=== PATIENT | male | born 1970 | race Caucasian/White ===

== ENCOUNTER 2024-07-28 19:08 | Inpatient (IN) ==
[2024-07-28] MEDS: PIPERACILLIN/TAZOBACTAM 4.5 GM/100 ML BAG IV ONE (20:27)
[2024-07-28 20:30] LABS: Basophils # (auto) 0.02 K/uL (0.00-0.20); Basophils % (auto) 0.3 %; Eosinophils # (auto) 0.08 K/uL (0.00-0.50); Eosinophils % (auto) 1.1 %; Hematocrit (blood only) 44.5 % (42.0-52.0); Immature Granulocytes # (auto) 0.02 K/uL (0.01-0.20); Immature Granulocytes % (auto) 0.3 %; Lymphocytes # (auto) 2.22 K/uL (1.20-3.40); Lymphocytes % (auto) 31.4 %; Mean Corpuscular Hemoglobin 31.4 pg (25.0-34.0); Mean Corpuscular Hgb Conc 33.7 g/dL (32.0-36.0); Mean Corpuscular Volume 93.3 fL (80.0-100.0); Mean Platelet Volume 8.5 fL (9.4-12.4); Monocytes % (auto) 8.5 %; Neutrophils # (auto) 4.12 K/uL (1.40-6.50); Neutrophils % (auto) 58.4 %; Platelet Count 246 K/uL (130-400); RDW Coefficient of Variation 11.8 % (11.5-14.5); RDW Standard Deviation 40.5 fL (36.4-46.3); Red Blood Count 4.77 M/uL (4.70-6.10); White Blood Count 7.06 K/ul (4.8-10.8)
[2024-07-28 20:31] LABS: Appearance Urine Clear (Clear); Bilirubin Urine Negative (Negative); Blood Urine Negative (Negative); Color Urine Yellow; Glucose Urine UA Negative (Negative); Ketones Urine Negative (Negative); Leukocyte Esterase Urine Negative (Negative); Nitrite Urine Negative (Negative); Protein Urine Negative (Negative); Specific Gravity Urine 1.013 (1.000-1.030); Urobilinogen Urine Negative (Negative); pH Urine 6.5 (4.5-7.5)
[2024-07-28 20:38] LABS: Albumin Globulin Ratio 1.5 (0.9-2); Albumin Level 4.8 gm/dl (3.4-5.0); BUN Creatinine Ratio 10.8 (10-20); Bilirubin,Total 0.5 mg/dl (0.2-1.0); Calcium 9.9 mg/dl (8.6-10.3); Creatinine Clr Calc Pharmacy 90.4 ml/min; Globulin 3.3 gm/dl (2.5-4.0); Potassium 4.1 mmol/L (3.5-5.1); Total Protein 8.1 gm/dl (6.0-8.3)
--- NOTE | 2024-07-28 21:03 | Emergency Department Note ---
Impression & Plan Diverticulitis, Colonic diverticular abscess ED Provider Note NAME: MADISON MARTINEZ AGE: 54 SEX: M : 1970 ARRIVES VIA: Walk-In INFORMANT: Patient, ED PROVIDER(S): Kenan Sifuentes MD CHIEF COMPLAINT: Diverticulitis with microperforation HPI: This is a 54-year-old male presenting for diverticulitis with microperforation. Patient was seen for 3 days with abdominal pain by his PCP today. He had a CAT scan done today which did come with the results of diverticulitis, with microperforation and possible developing early abscess. He was advised to come to the ER. Patient has had minimal pain when he is not moving. If he does move he is painful sensation in his left lower quadrant. Otherwise no nausea vomiting or diarrhea. ROS: See above HPI for pertinent positives & negatives. A total of 10 systems reviewed and were otherwise negative. PAST MEDICAL HISTORY: See Below PAST SURGICAL HISTORY: See Below FAMILY HISTORY: See Below SOCIAL HISTORY: See Below HOME MEDICATIONS: See Below ALLERGIES: See Below VITALS: See Below PHYSICAL EXAMINATION: General: resting comfortably in no acute distress Head: Normocephalic and atraumatic Eyes: Normal inspection, extraocular muscles intact Ear, nose, throat: Normal external exam Neck: Normal range of motion Respiratory: lungs clear to auscultation bilaterally Cardiovascular: Regular rate/rhythm, no murmur GI: soft, nontender, no guarding or rebound Extremities: nontender, moves all extremities Neuro: The patient awake and alert, appropriately conversive, no focal deficits, symmetric faces Skin: Warm, dry, and intact MEDICAL DECISION MAKING: This is a 54-year-old male present for diverticulitis with microperforation. CT imaging was done earlier today. -Bloodwork is reviewed showing no significant leukocytosis, anemia, electrolyte or creatinine abnormality -Care discussed with NANDINI Gomez for general surgery. -Given Zosyn at this time coverage -Will admit at this time for this diverticulitis/microperforation/abscess Differential diagnosis: Diverticulitis, abscess, bowel perforation, Diagnostics interpreted by me: ECG: None Cardiac Monitoring: An order was placed for continuous cardiac monitoring. The monitor shows a rate of 63 with sinus rhythm. 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3 C L Temperature Source Temporal Artery Scan Pulse Rate 90 70 Pulse Rate [Apical] 72 Respiratory Rate 16 16 Respiratory Effort / Characteristics Non-Labored Spontaneous Respiratory Depth Normal Respiratory Pattern Regular Blood Pressure 159/89 H Blood Pressure [Right Arm] 123/86 Blood Pressure Mean 112 Blood Pressure Mean [Right Arm] 98 Pulse Oximetry 100 97 Oxygen Delivery Method Room Air Room Air Sepsis Recent Fever Within 48 Hours No Sepsis New/Unexplained Change in Mental Status No Sepsis Action Taken by Nursing No Action Required 07/28/24 21:50 Temperature Temperature Source Pulse Rate Pulse Rate [Apical] 73 Respiratory Rate 16 Respiratory Effort / Characteristics Respiratory Depth Respiratory Pattern Blood Pressure Blood Pressure [Right Arm] 162/90 H Blood Pressure Mean Blood Pressure Mean [Right Arm] 114 Pulse Oximetry 96 Oxygen Delivery Method Room Air Sepsis Recent Fever Within 48 Hours Sepsis New/Unexplained Change in Mental Status Sepsis Action Taken by Nursing Laboratory Data 07/28/24 19:50 07/28/24 19:50 Lab Results 07/28/24 07/28/24 Range/Units 19:50 19:51 WBC 7.06 (4.8-10.8) K/ul RBC 4.77 (4.70-6.10) M/uL Hgb 15.0 (14.0-18.0) g/dl Hct 44.5 (42.0-52.0) % MCV 93.3 (80.0-100.0) fL MCH 31.4 (25.0-34.0) pg MCHC 33.7 (32.0-36.0) g/dL RDW Std Deviation 40.5 (36.4-46.3) fL RDW Coeff of Coretta 11.8 (11.5-14.5) % Plt Count 246 (130-400) K/uL MPV 8.5 L (9.4-12.4) fL Immature Gran % (Auto) 0.3 % Neut % (Auto) 58.4 % Lymph % (Auto) 31.4 % [place] % (Auto) 8.5 % Eos % (Auto) 1.1 % Baso % (Auto) 0.3 % Neut # (Auto) 4.12 (1.40-6.50) K/uL Lymph # (Auto) 2.22 (1.20-3.40) K/uL [place] # (Auto) 0.60 H (0.11-0.59) K/uL Eos # (Auto) 0.08 (0.00-0.50) K/uL Baso # (Auto) 0.02 (0.00-0.20) K/uL Immature Gran # (Auto) 0.02 (0.01-0.20) K/uL Sodium 138 (136-145) mmol/L Potassium 4.1 (3.5-5.1) mmol/L Chloride 104 (98-107) mmol/L Carbon Dioxide 27 (21-32) mmol/L Anion Gap 7 (3-11) BUN 11 (6-23) mg/dl Creatinine 1.02 (0.6-1.4) mg/dl Est Cr Clr Drug Dosing 90.4 ml/min eGFR 87.88 BUN/Creatinine Ratio 10.8 (10-20) Glucose 106 H (70-99(Fasting)) mg/dl Calcium 9.9 (8.6-10.3) mg/dl Total Bilirubin 0.5 (0.2-1.0) mg/dl AST 23 (13-39) U/L ALT 18 (7-52) U/L Alkaline Phosphatase 40 (34-104) U/L Total Protein 8.1 (6.0-8.3) gm/dl Albumin 4.8 (3.4-5.0) gm/dl Globulin 3.3 (2.5-4.0) gm/dl Albumin/Globulin Ratio 1.5 (0.9-2) Lipase 20 (11-82) U/L Urine Color Yellow Urine Appearance Clear (Clear) Urine pH 6.5 (4.5-7.5) Ur Specific [place] 1.013 (1.000-1.030) Urine Protein Negative (Negative) Urine Glucose (UA) Negative (Negative) Urine Ketones Negative (Negative) Urine Blood Negative (Negative) Urine Nitrite Negative (Negative) Urine Bilirubin Negative (Negative) Urine Urobilinogen Negative (Negative) Ur Leukocyte Esterase Negative (Negative) Administered Medications Sodium Chloride (Nss) 1,000 mls @ 100 mls/hr IV .Q10H ARCHIE Stop: 07/29/24 21:29 Last Admin: 07/28/24 21:48 Dose: 100 mls/hr Documented By: DUKE Discontinued Medications Piperacillin Sod/Tazobactam Sod (Zosyn) 4.5 gm in 100 mls @ 200 mls/hr IV NOW ONE; Protocol Stop: 07/28/24 20:22 Last Infusion: 07/28/24 20:58 Dose: Infused Documented By: Admin: 07/28/24 20:27 Dose: 200 mls/hr Documented By: DUKE Famotidine (Pepcid 20mg Iv Push) 20 mg in 5 mls @ 2.5 mls/min IV NOW STA Stop: 07/29/24 00:33 Last Admin: 07/29/24 00:58 Dose: 2.5 mls/min Documented By: AN Discharge Plan Visit Data Chief Complaint: Abdominal Pain Stated Complaint: DIVERTICULITIS, SAYS HE IS BEING ADMITTED ED Provider: Kenan Sifuentes Discharge Problem: Diverticulitis, Colonic diverticular abscess Discharge Instructions Interventions: ED Discharge Assessment Last Done: 07/28/24 23:22
--- NOTE | 2024-07-28 21:21 | Surgery Consultation ---
<Statement entered by Alejandro Gallagher, - 07/29/24 21:52> This case has been discussed with the surgical PA Date of Consultation July 28, 2024 Assessment & Plan (1) Diverticulitis large intestine: I discussed with the treating physician in the emergency department and the patient is being admitted on the hospitalist service. From a surgical perspective we recommend the following: Provide analgesics as needed Provide antiemetics if needed Implement n.p.o. status (I feel it would be acceptable for patient to have an occasional ice chip for comfort only) Hydrate patient with IV fluids while n.p.o. Antibiotics in form of Zosyn has been initiated and he should continue Follow serial labs Follow serial abdominal exams I discussed with the patient his condition. I did discuss with him that we will treat him in a conservative manner with bowel rest, antibiotics, and IV fluids. I did discuss with the patient that it would be preferable to treat him in a conservative manner as opposed to surgical intervention, as any surgery at this point would likely require a temporary colostomy. At the time of my interview the patient was nontoxic-appearing. He was normotensive without tachycardia fever and did not exhibit leukocytosis or acute kidney injury. He also does not have an acute abdomen, and therefore I feel conservative measures as outlined above are warranted Additional recommendations with forthcoming based on his clinical course as it unfolds History of Present Illness Reason for Consultation: Diverticulitis History of Present Illness This is a 54-year-old male who presented to the emergency department at the recommendation of his primary care physician due to concerns for diverticulitis on an outpatient CT scan which will be described below. Patient notes that he was having 3 days of abdominal pain. He notes that the pain was in the left lower quadrant without radiation. He said that the pain was worse when he was sitting up and with certain movements. He notes that the pain appeared somewhat better while he was lying flat or sitting still. He denies any fevers, shakes, or chills. He denies any nausea or vomiting. He denies any change in his bowel habits and notes that his bowels have been moving normally. The patient notes he has never had abdominal surgery. He does report that he had a colonoscopy in February 2024 at which time he had polyps removed. Patient developed abdominal pain after this procedure but was never formally diagnosed with diverticulitis at that time. This patient had an outpatient CT scan which I independent reviewed. The CT scan was of the abdomen pelvis that showed patient had diverticulitis of the distal descending colon which appeared to contain a microperforation and had an adjacent fluid collection measuring approximately 3.0 x 3.1 cm concerning for developing abscess. Since arrival to the emergency department the patient has had labs which included a CBC that showed white blood cell count, hemoglobin, hematocrit, and platelet count were normal. Chemistry profile showed sodium and potassium as well as the BUN and creatinine were normal. There is no elevation of patient's LFTs or lipase. Urinalysis was not indicative of infection. At the time my interview the patient was resting comfortably in bed he was no distress. Concerning past medical history the patient says that he has GERD Concerning past surgical history he denies any prior surgeries He reports he is not allergic to any medicines Concerning social history does not smoke Concerning family history his father suffered from esophageal cancer Patient History Social History Smoking Status: Never smoker Preferred Language: Syriac Feels Safe at Home: Yes Review of Systems Review of Systems: All systems reviewed & are unremarkable except as noted in HPI & below Physical Exam Constitutional: WD/WN, vitals as above Eyes: no conjunctival abnormality ENMT: Ears: no hearing impairment and no external ear abnormality Mouth: no oropharynx abnormality Neck: trachea midline Respiratory: normal respiratory effort; no respiratory distress and no labored breathing Cardiovascular: Rate/Rhythm: regular rate and regular rhythm Gastrointestinal (Abdomen): Abdomen is soft and nondistended. There is pain with palpation only in the left lower quadrant. There is no rebound tenderness or guarding. Musculoskeletal: No gross orthopedic abnormalities Skin: no rashes Neurologic: moves all extremities Psychiatric: A+Ox3, euthymic affect Results & Data Vital Signs (Past 12 Hours) Vital Signs Temp Pulse Pulse Resp BP BP Pulse Ox 07/28/24 20:24 72 16 123/86 97 07/28/24 20:17 70 07/28/24 19:13 36.3 C L 90 16 159/89 H 100 O2 Del Method 07/28/24 20:24 Room Air 07/28/24 20:17 07/28/24 19:13 Room Air PG Care Time/CCT Total # of Minutes Spent Total Time Spent with Patient: Total time spent is greater than 50% in coordination of care (as documented) at patient's floor/unit and/or counseling patient: Coding Level of Care Code 68923 IN/OBS CONSULT LVL 5,80M Diagnoses Diverticulitis large intestine K57.32
[2024-07-28] MEDS: SODIUM CHLORIDE 0.9% 1,000 ML IV SCH (21:48)
--- NOTE | 2024-07-28 22:13 | History & Physical Report ---
Date of Service July 28, 2024 Assessment & Plan (1) Diverticulitis large intestine: Plan 54 year old male presenting with LLQ abdominal pain: #Diverticulitis: CT A/P notable for: Distal descending colon diverticulitis complicated with contained micro perforation and adjacent fluid collection/early organizing abscess Afebrile, no leukocytosis - repeat AM labs NPO Continue IV fluids while NPO Continue IV Zosyn General surgery consulted, appreciate recs: surgical intervention deferred at this time, recommend conservative management Zofran PRN for N/V Chronic Conditions: GERD: Continue Pepcid BID Dispo: Admit med/surg FEN/GI: NPO, NSS @ 100mL/hour VTE ppx: Heparin Full Code History of Present Illness Chief Complaint: LLQ abdominal pain Primary Care Provider: Stevenson Darnell MD 54 year old male with minimal PMHx apart from GERD, presenting after outpatient abdominal CT demonstrated diverticulitis with microperforation and ~3cm early/developing abscess. Patient saw PCP regarding this abdominal pain, started about 4 days ago, LLQ intermittent stabbing pain. Pain overall improving, now pa in free at rest, only experiences pain with movement. Denies fevers/chills. Denies associated N/V/D. Patient notes previous episode of similar but less severe sx, resolved spontaneously over 7-10 day period. Allergies Allergy/AdvReac Type Severity Reaction Status Date / Time No Known Allergies Allergy Verified 07/28/24 22:11 Home Medications Medication Instructions Recorded Confirmed Type colchicine 0.6 mg tablet 0.6 mg PO DAILY PRN .GOUT FLARE 07/28/24 07/28/24 History famotidine 20 mg tablet 20 mg PO BID 07/28/24 07/28/24 History Past Med/Surg History Problem List Colonic diverticular abscess (Acute) Diverticulitis (Acute) Diverticulitis large intestine Social History Smoking Status: Current some day smoker Tobacco Type: Cigars Do You Dip or Chew Tobacco: No; Hx Alcohol Use: Yes Hx Substance Use: No Preferred Language: Danish [employer] Required: No Beliefs That Will Affect Care: None Current Living Situation: Spouse Feels Safe at Home: Yes Safety Concerns: Feels Safe At This Time Review of Systems Review of Systems: as per HPI Physical Exam Physical Exam: General: Alert and oriented. No acute distress Cardiac: Regular rate and rhythm, no murmurs appreciated Respiratory: Lungs clear to auscultation bilaterally, No increased work of breathing Abdominal: Soft, non-distended. +TTP in LLQ, no rebound tenderness, guarding, or rigidity. Bowel sounds normal. Extremities: No lower extremity edema Results & Data Results & Data Vital Signs (Past 12 Hours) Vital Signs Temp Pulse Pulse Resp BP BP Pulse Ox 07/28/24 21:50 73 16 162/90 H 96 07/28/24 20:24 72 16 123/86 97 07/28/24 20:17 70 07/28/24 19:13 36.3 C L 90 16 159/89 H 100 O2 Del Method 07/28/24 21:50 Room Air 07/28/24 20:24 Room Air 07/28/24 20:17 07/28/24 19:13 Room Air Laboratory Results Laboratory Results WBC 7.06 K/ul (4.8-10.8) 07/28/24 19:50 RBC 4.77 M/uL (4.70-6.10) 07/28/24 19:50 Hgb 15.0 g/dl (14.0-18.0) 07/28/24 19:50 Hct 44.5 % (42.0-52.0) 07/28/24 19:50 MCV 93.3 fL (80.0-100.0) 07/28/24 19:50 MCH 31.4 pg (25.0-34.0) 07/28/24 19:50 MCHC 33.7 g/dL (32.0-36.0) 07/28/24 19:50 RDW Std Deviation 40.5 fL (36.4-46.3) 07/28/24 19:50 RDW Coeff of Coretta 11.8 % (11.5-14.5) 07/28/24 19:50 Plt Count 246 K/uL (130-400) 07/28/24 19:50 MPV 8.5 fL (9.4-12.4) L 07/28/24 19:50 Immature Gran % (Auto) 0.3 % 07/28/24 19:50 Neut % (Auto) 58.4 % 07/28/24 19:50 Lymph % (Auto) 31.4 % 07/28/24 19:50 [place] % (Auto) 8.5 % 07/28/24 19:50 Eos % (Auto) 1.1 % 07/28/24 19:50 Baso % (Auto) 0.3 % 07/28/24 19:50 Neut # (Auto) 4.12 K/uL (1.40-6.50) 07/28/24 19:50 Lymph # (Auto) 2.22 K/uL (1.20-3.40) 07/28/24 19:50 [place] # (Auto) 0.60 K/uL (0.11-0.59) H 07/28/24 19:50 Eos # (Auto) 0.08 K/uL (0.00-0.50) 07/28/24 19:50 Baso # (Auto) 0.02 K/uL (0.00-0.20) 07/28/24 19:50 Immature Gran # (Auto) 0.02 K/uL (0.01-0.20) 07/28/24 19:50 Sodium 138 mmol/L (136-145) 07/28/24 19:50 Potassium 4.1 mmol/L (3.5-5.1) 07/28/24 19:50 Chloride 104 mmol/L (98-107) 07/28/24 19:50 Carbon Dioxide 27 mmol/L (21-32) 07/28/24 19:50 Anion Gap 7 (3-11) 07/28/24 19:50 BUN 11 mg/dl (6-23) 07/28/24 19:50 Creatinine 1.02 mg/dl (0.6-1.4) 07/28/24 19:50 Est Cr Clr Drug Dosing 90.4 ml/min 07/28/24 19:50 eGFR 87.88 07/28/24 19:50 BUN/Creatinine Ratio 10.8 (10-20) 07/28/24 19:50 Glucose 106 mg/dl (70-99(Fasting)) H 07/28/24 19:50 Calcium 9.9 mg/dl (8.6-10.3) 07/28/24 19:50 Total Bilirubin 0.5 mg/dl (0.2-1.0) 07/28/24 19:50 AST 23 U/L (13-39) 07/28/24 19:50 ALT 18 U/L (7-52) 07/28/24 19:50 Alkaline Phosphatase 40 U/L (34-104) 07/28/24 19:50 Total Protein 8.1 gm/dl (6.0-8.3) 07/28/24 19:50 Albumin 4.8 gm/dl (3.4-5.0) 07/28/24 19:50 Globulin 3.3 gm/dl (2.5-4.0) 07/28/24 19:50 Albumin/Globulin Ratio 1.5 (0.9-2) 07/28/24 19:50 Lipase 20 U/L (11-82) 07/28/24 19:50 Urine Color Yellow 07/28/24 19:51 Urine Appearance Clear (Clear) 07/28/24 19:51 Urine pH 6.5 (4.5-7.5) 07/28/24 19:51 Ur Specific [place] 1.013 (1.000-1.030) 07/28/24 19:51 Urine Protein Negative (Negative) 07/28/24 19:51 Urine Glucose (UA) Negative (Negative) 07/28/24 19:51 Urine Ketones Negative (Negative) 07/28/24 19:51 Urine Blood Negative (Negative) 07/28/24 19:51 Urine Nitrite Negative (Negative) 07/28/24 19:51 Urine Bilirubin Negative (Negative) 07/28/24 19:51 Urine Urobilinogen Negative (Negative) 07/28/24 19:51 Ur Leukocyte Esterase Negative (Negative) 07/28/24 19:51 Supervising Physician Co-Signing Physician Notes Patient seen and examined, chart reviewed, case discussed with Dr. Trinidad and I agree with the assessment and plan as documented above. In brief, patient is a 54-year-old male with history of known diverticulosis presenting with acute diverticulitis with microperforation and early abscess formation. Patient has had ongoing left lower quadrant pain for several days, sharp stabbing and intermittent. Afebrile, hemodynamically stable and nontoxic in appearance Skin warm, dry, intact no rash HEENT with moist mucous membranes, neck supple Heart + S1/S2, regular, no murmur/rub/gallops Lungs CTA anteriorly with no rales/rhonchi/wheezes Abdomen with normal active bowel sounds, soft, tender in the lower quadrants with no rebound or guarding Extremities warm, well-perfused Labs and images reviewed CT with distal descending colon diverticulitis complicated with contained microperforation adjacent fluid collection/early organizing abscess Assessment/[id number] male presenting with acute diverticulitis with contained microperforation, possible early abscess formation. He is afebrile, hemodynamically stable and nontoxic in appearance. Pain is well-controlled. He has been assessed by general surgery Admit to medical Keep n.p.o. IV fluids Continue IV Zosyn for now Appreciate general surgery assistance Remainder as above Resident Activity Tracking Resident Involvement: Resident Care Provided Care Provided: Adult Hospital Medicine
[2024-07-28] MEDS ORDERED: ONDANSETRON INJ 2 MG/ML 2 ML VIAL IV PRN (23:20)
[2024-07-28] MEDS ORDERED: MoRPHine SULFATE 2 MG/ML CARP IV PRN (23:20)
[2024-07-29] MEDS: FAMOTIDINE 20MG IV PUSH 20 MG/5 ML SYR IV STA (00:58)
[2024-07-29] MEDS: PIPERACILLIN/TAZOBACTAM 4.5 GM/100 ML BAG IV SCH (04:07)
--- NOTE | 2024-07-29 04:24 | Billing Data ---
Date of Service July 28, 2024 Coding Level of Care Code 88154 INT INP/OBS CARE
[2024-07-29 04:37] LABS: Albumin Globulin Ratio 1.4 (0.9-2); Albumin Level 3.9 gm/dl (3.4-5.0); BUN Creatinine Ratio 10.1 (10-20); Bilirubin,Total 0.5 mg/dl (0.2-1.0); Calcium 8.9 mg/dl (8.6-10.3); Creatinine Clr Calc Pharmacy 84.6 ml/min; Globulin 2.8 gm/dl (2.5-4.0); Potassium 4.5 mmol/L (3.5-5.1); Total Protein 6.7 gm/dl (6.0-8.3)
[2024-07-29 05:09] LABS: Basophils # (auto) 0.02 K/uL (0.00-0.20); Basophils % (auto) 0.3 %; Eosinophils # (auto) 0.11 K/uL (0.00-0.50); Eosinophils % (auto) 1.9 %; Hematocrit (blood only) 38.6 % (42.0-52.0); Immature Granulocytes # (auto) 0.01 K/uL (0.01-0.20); Immature Granulocytes % (auto) 0.2 %; Lymphocytes # (auto) 2.71 K/uL (1.20-3.40); Lymphocytes % (auto) 45.7 %; Mean Corpuscular Hemoglobin 31.9 pg (25.0-34.0); Mean Corpuscular Hgb Conc 33.7 g/dL (32.0-36.0); Mean Corpuscular Volume 94.6 fL (80.0-100.0); Mean Platelet Volume 8.5 fL (9.4-12.4); Monocytes # (auto) 0.58 K/uL (0.11-0.59); Monocytes % (auto) 9.8 %; Neutrophils % (auto) 42.1 %; Platelet Count 217 K/uL (130-400); RDW Coefficient of Variation 11.9 % (11.5-14.5); RDW Standard Deviation 41.6 fL (36.4-46.3); Red Blood Count 4.08 M/uL (4.70-6.10); White Blood Count 5.93 K/ul (4.8-10.8)
[2024-07-29] MEDS: HEPARIN SOD 5,000 UNIT/0.5 ML VIAL SQ SCH (10:35)
[2024-07-29] MEDS: FAMOTIDINE 20MG IV PUSH 20 MG/5 ML SYR IV SCH (12:33)
--- NOTE | 2024-07-29 14:45 | Surgery Progress Note ---
<Statement entered by Alejandro Gallagher, - 07/29/24 22:32> I have seen and examined this patient this am and I agree with this plan Date of Service July 29, 2024 Assessment & Plan (1) Colonic diverticular abscess: Plan: Pain is less than yesterday abd is soft , non distended, TTP LLQ WBC wnl, vss , afebrile Pt reports BMx3 since arrival denies blood continue conservative tx with IV Abx and NPO may have an ice chip Will need oral abx on d/c and colonoscopy in 6-8weeks Admission and Anticipated Discharge Date Admission Date: July 28, 2024 Subjective feeling better than yesterday +Bm and flatus Denies cp, sob, f/c Review of Systems Constitutional: no fever and no chills Respiratory: no dyspnea Cardiovascular: no chest pain Gastrointestinal: + abdominal pain; no bloating, no nausea and no vomiting Genitourinary: no dysuria Physical Exam Constitutional: cooperative and comfortable; no acute distress Respiratory: normal respiratory effort and able to speak in complete sentences; no respiratory distress Cardiovascular: Rate/Rhythm: regular rate Gastrointestinal (Abdomen): Inspection/Auscultation: abdomen not distended Percussion/Palpation: + abdomen tender (LLQ) and abdomen soft Skin: no rashes, warm and dry Psychiatric: A+Ox3, euthymic affect Results & Data Vital Signs (Past 12 Hours) Vital Signs Pulse Pulse Resp BP Pulse Ox O2 Del Method 07/29/24 14:28 67 18 159/101 H 98 Room Air 07/29/24 12:39 64 17 143/85 H 99 Room Air 07/29/24 10:35 58 H 132/75 96 Room Air 07/29/24 09:06 59 L 17 97 07/29/24 08:03 59 L 17 97 07/29/24 07:04 48 L 07/29/24 07:03 52 L 15 99 07/29/24 06:00 53 L 16 108/69 99 Room Air 07/29/24 03:30 51 L 14 93/59 L 95 Room Air Results CBC w Diff Results: RBC 4.08 M/uL (4.70-6.10) L 07/29/24 WBC 5.93 K/ul (4.8-10.8) 07/29/24 Hgb 13.0 g/dl (14.0-18.0) L 07/29/24 Hct 38.6 % (42.0-52.0) L 07/29/24 MCV 94.6 fL (80.0-100.0) 07/29/24 MCH 31.9 pg (25.0-34.0) 07/29/24 MCHC 33.7 g/dL (32.0-36.0) 07/29/24 RDW Standard Deviation 41.6 fL (36.4-46.3) 07/29/24 RDW Coefficient of Variation 11.9 % (11.5-14.5) 07/29/24 Plt Count 217 K/uL (130-400) 07/29/24 MPV 8.5 fL (9.4-12.4) L 07/29/24 Neutrophils (%) (Auto) 42.1 % 07/29/24 Lymphocytes (%) (Auto) 45.7 % 07/29/24 Monocytes # (Auto) 0.58 K/uL (0.11-0.59) 07/29/24 Eosinophils # (Auto) 0.11 K/uL (0.00-0.50) 07/29/24 Immature Granulocyte % (Auto) 0.2 % 07/29/24 Neutrophils # (Auto) 2.50 K/uL (1.40-6.50) 07/29/24 Lymphocytes # (Auto) 2.71 K/uL (1.20-3.40) 07/29/24 Monocytes # (Auto) 0.58 K/uL (0.11-0.59) 07/29/24 Eosinophils # (Auto) 0.11 K/uL (0.00-0.50) 07/29/24 Basophils # (Auto) 0.02 K/uL (0.00-0.20) 07/29/24 Immature Granulocyte # (Auto) 0.01 K/uL (0.01-0.20) 5 PG Care Time/CCT Total # of Minutes Spent Total Time Spent with Patient: Total time spent is greater than 50% in coordination of care (as documented) at patient's floor/unit and/or counseling patient: Coding Level of Care Code 46495 SUB INP/OBS CARE 07/03MIN Diagnoses Colonic diverticular abscess K57.20
[2024-07-29] MEDS: ACETAMINOPHEN 1,000 MG/100 ML VIAL IV PRN (18:23)
--- NOTE | 2024-07-29 18:47 | Hospitalist Progress Note ---
Date of Service July 29, 2024 Assessment & Plan (1) Diverticulitis large intestine: (2) Colonic diverticular abscess: Plan 54-year-old male with history of known diverticulosis admitted with acute diverticulitis with microperforation and early abscess formation. # acute colonic diverticulitis with microperforation and small diverticular abscess approximately 3 cm - general surgery is consulting, reviewed recommendations in their notes - pain has improved overnight, not very tender at this point, I allowed some clear liquids - continue IV pip-tazo, abscess this size should resolve with antibiotics - plan for follow-up with general surgery, likely needs repeat CT at interval - a.m. BMP to monitor electrolytes while n.p.o., a.m. CBC to monitor white blood count however he has not had a leukocytosis and WBC is 5 today Chronic Conditions: GERD: Continue Pepcid BID VTE ppx: Heparin sc Admission and Anticipated Discharge Date Admission Date: July 28, 2024 Subjective Armando reports that he has been having BMs, left lower abdominal pain has significantly improved since yesterday now really only hurts with deep palpation or when he coughs no nausea or vomiting, no appetite Physical Exam 2 Physical Exam: PHYSICAL EXAMINATION Last 24h vital signs reviewed, see documentation in flowsheet General: comfortable appearing, no distress HEENT: Normocephalic, atraumatic, pupils round and equal, sclerae anicteric, no conjunctival injection, dry mucus membranes Lungs: Normal respiratory effort. Clear to auscultation bilaterally. No RRW Heart: Regular rate and rhythm, no murmurs. No JVD Abdomen: soft, mildly tender to deep palpation in left lower quadrant almost at the pelvis without rebound or guarding, active Bowel sounds present. Extremities: Warm, dry, well-perfused. No extremity edema. Neuro: Alert and oriented x 4, face symmetric, moves 4 extremities well Psych: Normal affect and behavior Results & Data Results & Data Vital Signs (Past 12 Hours) Vital Signs Temp Pulse Pulse Resp BP Pulse Ox O2 Del Method 07/29/24 14:56 98.1 F 69 18 150/88 H 98 Room Air 07/29/24 14:28 67 18 159/101 H 98 Room Air 07/29/24 12:39 64 17 143/85 H 99 Room Air 07/29/24 10:35 58 H 132/75 96 Room Air 07/29/24 09:06 59 L 17 97 07/29/24 08:03 59 L 17 97 07/29/24 07:04 48 L 07/29/24 07:03 52 L 15 99 Laboratory Results 07/29/24 03:53 07/29/24 03:53 PG Care Time/CCT Total # of Minutes Spent Total Time Spent with Patient: Total time spent is greater than 50% in coordination of care (as documented) at patient's floor/unit and/or counseling patient: Coding Level of Care Code 60216 SUB INP/OBS CARE MIN Diagnoses Diverticulitis large intestine K57.32 Colonic diverticular abscess K57.20
[2024-07-30 10:20] LABS: Basophils # (auto) 0.01 K/uL (0.00-0.20); Basophils % (auto) 0.2 %; Eosinophils # (auto) 0.09 K/uL (0.00-0.50); Eosinophils % (auto) 1.8 %; Hematocrit (blood only) 40.9 % (42.0-52.0); Hemoglobin 13.9 g/dl (14.0-18.0); Immature Granulocytes # (auto) 0.01 K/uL (0.01-0.20); Immature Granulocytes % (auto) 0.2 %; Lymphocytes % (auto) 36.9 %; Mean Corpuscular Hemoglobin 31.5 pg (25.0-34.0); Mean Corpuscular Volume 92.7 fL (80.0-100.0); Mean Platelet Volume 8.3 fL (9.4-12.4); Monocytes # (auto) 0.38 K/uL (0.11-0.59); Monocytes % (auto) 7.8 %; Neutrophils # (auto) 2.59 K/uL (1.40-6.50); Neutrophils % (auto) 53.1 %; Platelet Count 265 K/uL (130-400); RDW Coefficient of Variation 11.6 % (11.5-14.5); RDW Standard Deviation 39.4 fL (36.4-46.3); Red Blood Count 4.41 M/uL (4.70-6.10); White Blood Count 4.88 K/ul (4.8-10.8)
[2024-07-30 10:37] LABS: Albumin Globulin Ratio 1.4 (0.9-2); BUN Creatinine Ratio 7.8 (10-20); Bilirubin,Total 0.5 mg/dl (0.2-1.0); Calcium 9.2 mg/dl (8.6-10.3); Creatinine Clr Calc Pharmacy 80.2 ml/min; Globulin 2.9 gm/dl (2.5-4.0); Potassium 3.6 mmol/L (3.5-5.1); Total Protein 6.9 gm/dl (6.0-8.3)
--- NOTE | 2024-07-30 11:11 | Surgery Progress Note ---
<Statement entered by Alejandro Gallagher, DO - 07/30/24 11:45> I have seen and examined this patient with the surgical PA. I agree with this plan. Date of Service July 30, 2024 Assessment & Plan (1) Colonic diverticular abscess: Plan: abd soft , non distended , TTP LLQ vss afebrile , +bm and flatus started clear liquids no n/v or worsen abd pain , may advance diet as tolerated continue IV abx while in house will need oral antibiotics for 2 weeks on d/c and follow up PCP for an o/p repeat CT after finishing abx to follow up with GI op in 6-8wk for colonoscopy No acute surgical indications Gen surg will follow from the peripheral call with questions/concerns pt seen and examined with Dr Gallagher Admission and Anticipated Discharge Date Admission Date: July 28, 2024 Subjective pt feeling better than yesterday started clear liquids , no n/v or increase in abd pain Review of Systems Constitutional: no fever and no chills Respiratory: no dyspnea Cardiovascular: no chest pain Gastrointestinal: + abdominal pain; no bloating, no nausea and no vomiting Genitourinary: no dysuria Physical Exam Constitutional: cooperative and comfortable; no acute distress Respiratory: normal respiratory effort and able to speak in complete sentences; no respiratory distress Cardiovascular: Rate/Rhythm: regular rate Gastrointestinal (Abdomen): Inspection/Auscultation: abdomen not distended Percussion/Palpation: + abdomen tender (LLQ) and abdomen soft Skin: no rashes, warm and dry Psychiatric: A+Ox3, euthymic affect Results & Data Vital Signs (Past 12 Hours) Vital Signs Temp Pulse Resp BP Pulse Ox O2 Del Method 07/30/24 07:36 97.7 F 52 L 16 131/83 97 Room Air PG Care Time/CCT Total # of Minutes Spent Total Time Spent with Patient: Total time spent is greater than 50% in coordination of care (as documented) at patient's floor/unit and/or counseling patient: Coding Level of Care Code 23356 SUB INP/OBS CARE 07/03MIN Diagnoses Colonic diverticular abscess K57.20
[2024-07-30 15:24] VITALS: BP 153/91; PULSE 112; RESP 18; TEMP 97.9; O2SAT 98
--- NOTE | 2024-07-30 19:09 | Discharge Summary ---
Discharge Summary Date of Service July 30, 2024 Principal Dx & Hospital Course #1 = Principal Diagnosis (1) Diverticulitis large intestine: (2) Colonic diverticular abscess: Plan 54-year-old male with history of known diverticulosis admitted with acute diverticulitis of descending colon with microperforation and early abscess formation. # acute colonic diverticulitis with microperforation and small diverticular abscess approximately 3 cm - general surgery consulted, recommended two weeks of antibiotics and follow up CT in 2 weeks with primary care. Follow up with Dr. Gallagher if needed based on CT findings. - treated with pip-tazo, pain significantly improved, tenderness resolved, tolerated advancement to low fiber diet, discharging on 2 weeks augmentin. Probiotic. - follow up with his carroting machine offbearer for colonoscopy in 6-8 weeks (if no colonoscopy recently) Notes For Next Care Provider repeat abdominal CT in 2 weeks Medication Changes From Visit augmentin x 14d, probiotic Admission HPI Per Admitting Provider 54 year old male with minimal PMHx apart from GERD, presenting after outpatient abdominal CT demonstrated diverticulitis with microperforation and ~3cm early/developing abscess. Patient saw PCP regarding this abdominal pain, started about 4 days ago, LLQ intermittent stabbing pain. Pain overall improving, now pain free at rest, only experiences pain with movement. Denies fevers/chills. Denies associated N/V/D. Patient notes previous episode of similar but less severe sx, resolved spontaneously over 7-10 day period. Discharge Exam PHYSICAL EXAMINATION Last 24h vital signs reviewed, see documentation in flowsheet General: comfortable appearing, no distress HEENT: Normocephalic, atraumatic, pupils round and equal, sclerae anicteric, no conjunctival injection, dry mucus membranes Lungs: normal WOB Heart: deferred Abdomen: active BT, nondistended, soft, minimally tender to deep palpation of LLQ no rrg Extremities: Warm, dry, well-perfused. No extremity edema. Neuro: Alert and oriented x 4, face symmetric, moves 4 extremities well Psych: Normal affect and behavior Discharge Plan Discharge Items Patient Disposition: Home - Self-Care Reason For Visit: DIVERTICULITIS Discharge Diagnosis: Acute diverticulitis, small diverticular abscess Activity: Resume your previous activity Non-emergency contact: Primary Care Provider Call non-emergency contact if: you have any medication questions, your symptoms worsen and you have a fever Follow-up/Referrals: Mann,Christopher R., MD [Primary Care Provider] - Diet: Low Fiber Addtl Attending Provider Instructions: You were treated for acute diverticulitis with IV antibiotics An abscess this size will usually resolve with antibiotics Take antibiotic (augmentin) for two weeks -you'll probably want to take probiotics to help with diarrhea for 2-4 weeks -it is ok to take some Imodium for diarrhea if necessary You will need a repeat CT scan in about 2 weeks - I contacted Dr. Darnell about arranging this You should probably also have a colonoscopy in 6-8 weeks to make sure there are no other underlying issues - talk to you carroting machine offbearer - if your last colonoscopy was recent and was a good prep, it might not have to be repeated Follow an [id number] low fiber diet for a week or two until abdominal pain resolves and things return to normal It was a pleasure taking care of you in the hospital, Elisabeth Mendoza MD Pending Studies at Discharge: No Stand-Alone Forms: My [facility], Work/School Release, Smoking Cessation Medications and DC Order Prescriptions: New amoxicillin-pot clavulanate 875-125 mg tablet 1 tab PO BID Qty: 28 0RF Continued colchicine 0.6 mg tablet 0.6 mg PO DAILY PRN (Reason: .GOUT FLARE) famotidine 20 mg tablet 20 mg PO BID Discharge Orders: Discharge Order (Routine); Ordered 07/30/24 Ordered By: Elisabeth Jordan/Other Patient Handouts: Low-Fiber Diet Admission Data Admit Date/Time: 07/28/24 22:12 Attending Provider: Elisabeth Mendoza Admit Provider: Nishant Trinidad Primary Care Provider: Stevenson Darnell Other Providers: Vandana Quach; Shilpa Shelley; Brooks Streeter; Gurvinder Gama; Tom Robles; Oseas Thompson; Estrella Philip; Jorge Alexander; Rj Bolden; Alejandro Gallagher; Luis Antonio Romano; Alton Villegas Other Interventions: Discharge Summary Assessment (RN) Last Done: 07/30/24 16:43 Hospital Stay Data Consultations 02/19/25 21:39 ED Decision to Admit Stat 07/28/24 23:20 Consult General Surgery Routine Pending Results Patient Have Any Pending Studies at Discharge: No Discharge Instructions Given to Patient (Per Discharging Provider) You were treated for acute diverticulitis with IV antibiotics An abscess this size will usually resolve with antibiotics Take antibiotic (augmentin) for two weeks -you'll probably want to take probiotics to help with diarrhea for 2-4 weeks -it is ok to take some Imodium for diarrhea if necessary You will need a repeat CT scan in about 2 weeks - I contacted Dr. Darnell about arranging this You should probably also have a colonoscopy in 6-8 weeks to make sure there are no other underlying issues - talk to you carroting machine offbearer - if your last colonoscopy was recent and was a good prep, it might not have to be repeated Follow an [id number] low fiber diet for a week or two until abdominal pain resolves and things return to normal It was a pleasure taking care of you in the hospital, Elisabeth Mendoza MD Total Time Total Time Spent Total Time Spent (In Minutes): <30 min Coding Level of Care Code 42834 IN/OBS DISCH 30 MIN/LESS Diagnoses Diverticulitis large intestine K57.32 Colonic diverticular abscess K57.20
== END 2024-07-30 18:29 | disposition home or self-care (01) | DRG 392 ==
LOC: ED 19:08 → SUATTDRO 22:12 → EDINP 22:12 → 3W 07-29 14:33